=== PATIENT | male | born 1985 | race Caucasian/White ===

== ENCOUNTER 2017-11-14 09:24 | Emergency (ER) | payer MEDICAID ==
[~2017-11-14] VITALS: Ht 193 cm; Wt 90.1 kg
[2017-11-14 10:49] LABS: MD YES; MEAN CORPUSCULAR HEMOGLOBIN 29.4 pg (27.5-34.5); MEAN CORPUSCULAR HGB CONC 33.8 g/dL (33.2-36.2); MEAN CORPUSCULAR VOLUME 87.2 fL (81-97); MEAN PLATELET VOLUME 9.7 fL (7.4-10.4); PLATELET COUNT 205 x10^3/uL (130-400); RED BLOOD COUNT 4.86 x10^6/uL (4.38-5.82); RED CELL DISTRIBUTION WIDTH 13.5 % (9.4-14.8)
[2017-11-14 11:00] LABS: ALANINE AMINOTRANSFERASE 25 U/L (12-78); ALBUMIN 3.4 g/dL (3.4-5.0); ANION GAP 3 mmol/L (5-15); CALCIUM 8.4 mg/dL (8.5-10.1); CHLORIDE 107 mmol/L (98-107)
[2017-11-14 11:02] LABS: <RBC MORPHOLOGY> NORMAL; BAND#(MANUAL) 0.16 x10^3/uL; BANDS%(MANUAL) 2 % (0-7); EOS#(MANUAL) 0.41 x10^3/uL (0.0-0.4); EOS% (MANUAL) 5 % (1-7); LYMPH#(MANUAL) 2.75 x10^3/uL (1-3.4); LYMPHS% (MANUAL) 34 % (22-44); MONOS#(MANUAL) 1.05 x10^3/uL (0.3-2.7); MONOS% (MANUAL) 13 % (2-9); REACTIVE LYMPHS # (MANUAL) 0.49 x10^3/uL (0-0); REACTIVE LYMPHS % (MANUAL) 6 % (0-0); SEG#(MANUAL) 3.24 x10^3/uL (1.8-6.8); SEGS% (MANUAL) 40 % (42-75)
[2017-11-14 11:03] LABS: <PLATELET ESTIMATE> ADEQUATE; <PLT MORPHOLOGY> NORMAL PLT MORPH; ALKALINE PHOSPHATASE 81 U/L (45-117); BILIRUBIN,TOTAL 0.3 mg/dL (0.2-1.0); TOTAL PROTEIN 6.5 g/dL (6.4-8.2)
[2017-11-14 11:53] VITALS: BP 94/54
[2017-11-14] MEDS ORDERED: MAALOX/HYOSCYAMINE/LIDOCAINE 45 ML BTL ONE (11:57)
[2017-11-14] MEDS ORDERED: MAALOX/HYOSCYAMINE/LIDOCAINE 45 ML BTL PO ONE (12:00)
== END 2017-11-14 12:41 | disposition home or self-care (01) ==
LOC: ED 12:30
DX: K29.70 Gastritis, unspecified, without bleeding (principal); F17.200 Nicotine dependence, unspecified, uncomplicated; F31.9 Bipolar disorder, unspecified; K21.9 Gastro-esophageal reflux disease without esophagitis
CPT/HCPCS: 36415; 74022; 76700; 80053; 83690; 85025; 99285

== ENCOUNTER 2019-12-17 11:11 | Emergency (ER) | payer MEDICAID ==
[~2019-12-17] VITALS: Ht 190.5 cm; Wt 100.4 kg
[2019-12-17 11:20] VITALS: BP 108/72
--- NOTE | 2019-12-17 11:53 | NUR ---
PT REPORTS WORM ON SKIN, THEY "CAME OUT WHEN I PUT APPLE CIDER VINEGAR ON MY ARM", NO VISIBLE WORMS SEEN ON SKIN. PT STATES, "MY GIRLFRIEND WAS HERE AND YOU GUYS DIDNT TREAT HER RIGHT" PT REQUESTING PROVIDER TO PERFORM SKIN SCRAPPING, AWAITING ORDERS
== END 2019-12-17 12:14 | disposition home or self-care (01) ==
LOC: ED 12:08
DX: R21 Rash and other nonspecific skin eruption (principal); K21.9 Gastro-esophageal reflux disease without esophagitis
CPT/HCPCS: 99283

== ENCOUNTER 2021-01-02 03:20 | Inpatient (IN) | payer MEDICAID, OTHER ==
[~2021-01-02] VITALS: Ht 185.4 cm; Wt 102.0 kg
[2021-01-02] MEDS ORDERED: SODIUM CHLORIDE 0.9% 1,000ML IVBOLUS ONE ×2 (03:30→04:30)
--- NOTE | 2021-01-02 03:34 | NUR ---
Patient ALISIA from half-way after a poss seizure. 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 Upon EMS arrival, patient was posturing, diaphoretic, incontinent, and AAOx2. Unknown if hx of seizures. Patient diaphoretic. Responds to verbal stimuli. AAOx3 to person, place, and event. IV established, blood drawn, and urine collected via straight cath. LE at bedside.
--- NOTE | 2021-01-02 03:35 | NUR ---
EMS reports patient HR on arrival was in the 170s. BS 116. EMS admin 2mg Versed IM.
[2021-01-02 03:56] LABS: MICROSCOPIC INDICATED
[2021-01-02 03:57] LABS: MEAN CORPUSCULAR HGB CONC 34.7 g/dL (33.2-36.2); MEAN PLATELET VOLUME 11.1 fL (7.4-10.4); PLATELET COUNT 262 x10^3/uL (130-400); RED BLOOD COUNT 5.48 x10^6/uL (4.38-5.82); RED CELL DISTRIBUTION WIDTH 13.5 % (9.4-14.8)
--- NOTE | 2021-01-02 03:57 | NUR ---
PT STRAIGHT CATHED FOR UA, PT TOLERATED PROCEDURE WELL, PT HAD XRAY TAKEN AND IS NOW IN CT.
[2021-01-02 04:05] LABS: CHLORIDE 108 mmol/L (98-107)
[2021-01-02 04:09] LABS: AMPHETAMINE SCREEN, URINE Negative (Negative); BARBITURATE SCREEN, URINE Negative (Negative); BENZODIAZEPINE SCREEN, URINE Positive (Negative); CANNABINOID SCREEN, URINE Positive (Negative); COCAINE SCREEN, URINE Negative (Negative); METHADONE SCREEN, URINE Positive (Negative)
[2021-01-02 04:10] LABS: OPIATE SCREEN, URINE Negative (Negative)
[2021-01-02 04:10] LABS: ALANINE AMINOTRANSFERASE 40 U/L (12-78); ALBUMIN 4.2 g/dL (3.4-5.0); ALKALINE PHOSPHATASE 69 U/L (45-117); ANION GAP 13 mmol/L (5-15); BILIRUBIN,TOTAL 0.5 mg/dL (0.2-1.0); CALCIUM 9.6 mg/dL (8.5-10.1); CREATININE 1.18 mg/dL (0.7-1.3); SALICYLATE LEVEL 4.4 mg/dL (2.8-20.0); TOTAL PROTEIN 8.1 g/dL (6.4-8.2)
[2021-01-02] MEDS ORDERED: LIDOCAINE-MPF 1%, 2ML ONE (04:23)
[2021-01-02 04:29] LABS: BAND#(MANUAL) 0.92 x10^3/uL; BANDS%(MANUAL) 3 % (0-7); LYMPH#(MANUAL) 0.61 x10^3/uL (1-3.4); LYMPHS% (MANUAL) 2 % (22-44); MONOS#(MANUAL) 2.75 x10^3/uL (0.3-2.7); MONOS% (MANUAL) 9 % (2-9); SEG#(MANUAL) 26.23 x10^3/uL (1.8-6.8); SEGS% (MANUAL) 86 % (42-75)
[2021-01-02 04:30] LABS: <PLATELET ESTIMATE> ADEQUATE; <RBC MORPHOLOGY> NORMAL; LARGE PLATELETS 1+; PMNS WITH VACUOLES 1+
[2021-01-02] MEDS ORDERED: LIDOCAINE-MPF 1%, 2ML INFIL ONE (04:30)
--- NOTE | 2021-01-02 04:50 | NUR ---
pt had lp done, pt tolerated procedure well
[2021-01-02 05:15] LABS: GLUCOSE, CSF 98 mg/dL (40-80); TOTAL PROTEIN,CSF 44 mg/dL (15-45)
[2021-01-02] MEDS ORDERED: ENOXAPARIN 40 MG/0.4 ML SQ SCH (05:30)
[2021-01-02] MEDS ORDERED: BISACODYL 10 MG SUPP PR PRN (05:30)
[2021-01-02] MEDS ORDERED: LORazepam 2 MG/ML, 1ML IV PRN (05:30)
[2021-01-02] MEDS ORDERED: LEVETIRACETAM 1,000 MG in SODIUM CHLORIDE 0.9% 100 ML IV ONE (05:30)
--- NOTE | 2021-01-02 05:33 | NUR ---
pt laying flat on gurney, denies needs at this time.
--- NOTE | 2021-01-02 06:02 | NUR ---
This RN asked ERP about antibiotics. ERP stated that since there was no source and the patient was not tachy or had bands, the high white count could be due to seizure.
--- NOTE | 2021-01-02 06:06 | NUR ---
Pt to be admitted to Neuro Tele, room 488-2. Report called to JUSTIN Marte.
[2021-01-02 06:32] VITALS: BP 136/83
[2021-01-02 07:52] VITALS: BP 144/84
[2021-01-02] MEDS: SODIUM CHLORIDE 0.9% 1,000 ML IV SCH ×2 (09:53→16:58)
[2021-01-02 11:12] LABS: BASOPHILS % (AUTO) 0 % (0-1); EOSINOPHILS % (AUTO) 0 % (1-7); LYMPHOCYTES % (AUTO) 5 % (22-44); MEAN CORPUSCULAR HEMOGLOBIN 31.6 pg (27.5-34.5); MEAN PLATELET VOLUME 10.4 fL (7.4-10.4); MONOCYTES % (AUTO) 5 % (2-9); NEUTROPHILS % (AUTO) 90 % (42-75); PLATELET COUNT 193 x10^3/uL (130-400); RED CELL DISTRIBUTION WIDTH 13.3 % (9.4-14.8)
[2021-01-02 12:23] LABS: ALANINE AMINOTRANSFERASE 41 U/L (12-78); ALBUMIN 3.5 g/dL (3.4-5.0); ANION GAP 7 mmol/L (5-15); CALCIUM 8.4 mg/dL (8.5-10.1); CHLORIDE 112 mmol/L (98-107); CREATININE 0.62 mg/dL (0.7-1.3)
[2021-01-02 12:25] LABS: ALKALINE PHOSPHATASE 56 U/L (45-117); BILIRUBIN,TOTAL 0.4 mg/dL (0.2-1.0); TOTAL PROTEIN 6.7 g/dL (6.4-8.2)
[2021-01-02 15:24] VITALS: BP 151/78
[2021-01-02] MEDS: LEVETIRACETAM 500 MG in SODIUM CHLORIDE 0.9% 100 ML IV SCH (16:29)
[2021-01-02 19:58] VITALS: BP 147/82
[2021-01-02 23:34] LABS: MEAN CORPUSCULAR HEMOGLOBIN 30.9 pg (27.5-34.5); MEAN CORPUSCULAR HGB CONC 34.6 g/dL (33.2-36.2); MEAN PLATELET VOLUME 10.9 fL (7.4-10.4); PLATELET COUNT 196 x10^3/uL (130-400); RED BLOOD COUNT 4.86 x10^6/uL (4.38-5.82); RED CELL DISTRIBUTION WIDTH 13.2 % (9.4-14.8)
[2021-01-02 23:40] LABS: HCT (SEDRATE) 43.5 % (39.2-51.8)
[2021-01-02 23:43] LABS: ALBUMIN 3.4 g/dL (3.4-5.0); ANION GAP 7 mmol/L (5-15); CALCIUM 8.9 mg/dL (8.5-10.1); CHLORIDE 112 mmol/L (98-107)
[2021-01-03] VITALS (12 sets, daily range): BP systolic 126–149; BP diastolic 68–86
[2021-01-03 00:07] LABS: <RBC MORPHOLOGY> NORMAL; BAND#(MANUAL) 0.47 x10^3/uL; BANDS%(MANUAL) 2 % (0-7); LYMPHS% (MANUAL) 3 % (22-44); MONOS#(MANUAL) 0.93 x10^3/uL (0.3-2.7); MONOS% (MANUAL) 4 % (2-9); SEGS% (MANUAL) 91 % (42-75)
[2021-01-03 00:08] LABS: <PLATELET ESTIMATE> ADEQUATE; LARGE PLATELETS 1+
[2021-01-03 00:22] LABS: ALANINE AMINOTRANSFERASE 52 U/L (12-78); ALKALINE PHOSPHATASE 54 U/L (45-117); BILIRUBIN,TOTAL 0.5 mg/dL (0.2-1.0); CREATINE KINASE, TOTAL 7820 U/L (39-308); CREATININE 0.86 mg/dL (0.7-1.3); TOTAL PROTEIN 6.7 g/dL (6.4-8.2)
[2021-01-03] MEDS ORDERED: LORazepam 2 MG/ML, 1ML IVPush ONE (01:30)
[2021-01-03] MEDS ORDERED: VANCOMYCIN PER PHARMACY MC PRN (01:30)
[2021-01-03] MEDS: AMPICILLIN/SULBACTAM 3 GM in SODIUM CHLORIDE 0.9% 100 ML IV SCH ×3 (02:00→19:27)
[2021-01-03] MEDS ORDERED: VANCOMYCIN 2,300 MG in SODIUM CHLORIDE 0.9% 500 ML IV ONE (02:00)
[2021-01-03] MEDS ORDERED: PHARMACOKINETIC MONITORING MC PRN (02:00)
[2021-01-03] MEDS: SODIUM CHLORIDE 0.9% 1,000 ML IV SCH ×3 (04:00→20:49)
[2021-01-03] MEDS: LEVETIRACETAM 500 MG in SODIUM CHLORIDE 0.9% 100 ML IV SCH ×2 (05:00→17:24)
[2021-01-03] MEDS: ACETAMINOPHEN 650 MG SUPP PR PRN ×2 (09:47→13:55)
[2021-01-03] MEDS: VANCOMYCIN 1,800 MG in SODIUM CHLORIDE 0.9% 250 ML IV SCH ×2 (12:22→20:50)
[2021-01-03] MEDS ORDERED: IBUPROFEN 100 MG/5 ML UDC NG ONE (18:00)
[2021-01-03] MEDS ORDERED: IBUPROFEN 200 MG TABLET NG ONE (18:00)
[2021-01-03] MEDS ORDERED: SODIUM CHLORIDE 0.9% 1,000ML IVBOLUS ONE (20:00)
[2021-01-04] VITALS (7 sets, daily range): BP systolic 125–159; BP diastolic 78–84
[2021-01-04] MEDS: AMPICILLIN/SULBACTAM 3 GM in SODIUM CHLORIDE 0.9% 100 ML IV SCH ×3 (03:08→19:50)
[2021-01-04] MEDS: LEVETIRACETAM 500 MG in SODIUM CHLORIDE 0.9% 100 ML IV SCH ×2 (04:18→16:44)
[2021-01-04] MEDS: VANCOMYCIN 1,800 MG in SODIUM CHLORIDE 0.9% 250 ML IV SCH ×3 (04:35→20:51)
[2021-01-04 05:24] LABS: BASOPHILS % (AUTO) 0 % (0-1); EOSINOPHILS % (AUTO) 0 % (1-7); LYMPHOCYTES % (AUTO) 6 % (22-44); MEAN CORPUSCULAR HEMOGLOBIN 30.6 pg (27.5-34.5); MEAN CORPUSCULAR HGB CONC 34.1 g/dL (33.2-36.2); MEAN PLATELET VOLUME 11.2 fL (7.4-10.4); MONOCYTES % (AUTO) 9 % (2-9); NEUTROPHILS % (AUTO) 84 % (42-75); PLATELET COUNT 162 x10^3/uL (130-400); RED BLOOD COUNT 4.55 x10^6/uL (4.38-5.82); RED CELL DISTRIBUTION WIDTH 13.3 % (9.4-14.8)
[2021-01-04 05:42] LABS: CHLORIDE 113 mmol/L (98-107)
[2021-01-04 06:17] LABS: ALANINE AMINOTRANSFERASE 55 U/L (12-78); ALBUMIN 2.8 g/dL (3.4-5.0); ALKALINE PHOSPHATASE 44 U/L (45-117); ANION GAP 7 mmol/L (5-15); BILIRUBIN,TOTAL 0.6 mg/dL (0.2-1.0); CALCIUM 8.4 mg/dL (8.5-10.1); CREATINE KINASE, TOTAL 4037 U/L (39-308); CREATININE 0.46 mg/dL (0.7-1.3)
[2021-01-04] MEDS: ACETAMINOPHEN 650 MG SUPP PR PRN (16:44)
[2021-01-04] MEDS: SODIUM CHLORIDE 0.9% 1,000 ML IV SCH (19:00)
[2021-01-05 01:03] VITALS: BP 158/90
[2021-01-05] MEDS: AMPICILLIN/SULBACTAM 3 GM in SODIUM CHLORIDE 0.9% 100 ML IV SCH ×3 (02:21→20:06)
[2021-01-05] MEDS: VANCOMYCIN 1,800 MG in SODIUM CHLORIDE 0.9% 250 ML IV SCH ×3 (03:49→21:24)
[2021-01-05] MEDS: SODIUM CHLORIDE 0.9% 1,000 ML IV SCH ×2 (05:00→12:49)
[2021-01-05] MEDS: LEVETIRACETAM 500 MG in SODIUM CHLORIDE 0.9% 100 ML IV SCH ×2 (05:07→17:28)
[2021-01-05 06:59] VITALS: BP 156/55
[2021-01-05] MEDS: BROMOCRIPTINE 2.5 MG TABLET PO SCH ×3 (11:45→21:24)
[2021-01-05 12:47] VITALS: BP 157/92
[2021-01-05] MEDS: ACETAMINOPHEN 650 MG SUPP PR PRN (12:48)
[2021-01-05 15:16] VITALS: BP 147/74
[2021-01-05] MEDS ORDERED: GADOTERATE 10 MMOL/20ML SYR ONE (18:23)
[2021-01-05 21:09] VITALS: BP 123/78
[2021-01-06 00:31] VITALS: BP 125/78
[2021-01-06] MEDS: ACETAMINOPHEN 650 MG SUPP PR PRN (00:34)
[2021-01-06] MEDS: AMPICILLIN/SULBACTAM 3 GM in SODIUM CHLORIDE 0.9% 100 ML IV SCH ×3 (03:13→18:25)
[2021-01-06] MEDS: VANCOMYCIN 1,800 MG in SODIUM CHLORIDE 0.9% 250 ML IV SCH (04:31)
[2021-01-06] MEDS: SODIUM CHLORIDE 0.9% 1,000 ML IV SCH (04:31)
[2021-01-06] MEDS: LEVETIRACETAM 500 MG in SODIUM CHLORIDE 0.9% 100 ML IV SCH ×2 (05:28→06:17)
[2021-01-06 05:51] LABS: BASOPHILS % (AUTO) 0 % (0-1); EOSINOPHILS % (AUTO) 1 % (1-7); LYMPHOCYTES % (AUTO) 17 % (22-44); MEAN CORPUSCULAR HEMOGLOBIN 30.5 pg (27.5-34.5); MEAN PLATELET VOLUME 11.2 fL (7.4-10.4); MONOCYTES % (AUTO) 9 % (2-9); NEUTROPHILS % (AUTO) 74 % (42-75); PLATELET COUNT 164 x10^3/uL (130-400); RED BLOOD COUNT 4.31 x10^6/uL (4.38-5.82); RED CELL DISTRIBUTION WIDTH 13.3 % (9.4-14.8)
[2021-01-06 06:00] LABS: ALBUMIN 2.2 g/dL (3.4-5.0); ANION GAP 3 mmol/L (5-15); CALCIUM 8.2 mg/dL (8.5-10.1); CHLORIDE 115 mmol/L (98-107)
[2021-01-06 06:15] LABS: ALANINE AMINOTRANSFERASE 104 U/L (12-78); ALKALINE PHOSPHATASE 51 U/L (45-117); BILIRUBIN,TOTAL 0.5 mg/dL (0.2-1.0); CREATINE KINASE, TOTAL 2336 U/L (39-308); CREATININE 0.41 mg/dL (0.7-1.3); TOTAL PROTEIN 5.3 g/dL (6.4-8.2)
[2021-01-06 09:10] VITALS: BP 130/76
[2021-01-06] MEDS: BROMOCRIPTINE 2.5 MG TABLET PO SCH (09:25)
[2021-01-06] MEDS: POTASSIUM CHLORIDE 20 MEQ PACKET PO SCH ×2 (10:47→20:16)
[2021-01-06] MEDS: VANCOMYCIN 1,900 MG in SODIUM CHLORIDE 0.9% 250 ML IV SCH ×2 (12:46→20:16)
[2021-01-06 14:31] VITALS: BP 143/85
[2021-01-06] MEDS: LEVETIRACETAM 250 MG in SODIUM CHLORIDE 0.9% 100 ML IV SCH (17:32)
[2021-01-06 20:30] VITALS: BP 139/90
[2021-01-07 00:55] VITALS: BP 138/82
[2021-01-07] MEDS: AMPICILLIN/SULBACTAM 3 GM in SODIUM CHLORIDE 0.9% 100 ML IV SCH ×3 (03:20→20:19)
[2021-01-07] MEDS: VANCOMYCIN 1,900 MG in SODIUM CHLORIDE 0.9% 250 ML IV SCH ×2 (04:36→12:48)
[2021-01-07] MEDS: POLYETHYLENE GLYCOL 17 GM PACKET PO PRN (06:13)
[2021-01-07] MEDS: LEVETIRACETAM 250 MG in SODIUM CHLORIDE 0.9% 100 ML IV SCH ×2 (06:13→17:14)
[2021-01-07 06:42] LABS: BASOPHILS % (AUTO) 1 % (0-1); EOSINOPHILS % (AUTO) 1 % (1-7); LYMPHOCYTES % (AUTO) 11 % (22-44); MEAN CORPUSCULAR HEMOGLOBIN 30.7 pg (27.5-34.5); MEAN CORPUSCULAR HGB CONC 34.5 g/dL (33.2-36.2); MEAN PLATELET VOLUME 10.8 fL (7.4-10.4); MONOCYTES % (AUTO) 8 % (2-9); NEUTROPHILS % (AUTO) 79 % (42-75); PLATELET COUNT 161 x10^3/uL (130-400); RED BLOOD COUNT 4.41 x10^6/uL (4.38-5.82); RED CELL DISTRIBUTION WIDTH 13.1 % (9.4-14.8)
[2021-01-07 06:51] LABS: CHLORIDE 107 mmol/L (98-107)
[2021-01-07 06:58] LABS: ALANINE AMINOTRANSFERASE 113 U/L (12-78); ALBUMIN 2.1 g/dL (3.4-5.0); ALKALINE PHOSPHATASE 47 U/L (45-117); ANION GAP 4 mmol/L (5-15); BILIRUBIN,TOTAL 0.6 mg/dL (0.2-1.0); CALCIUM 8.3 mg/dL (8.5-10.1); CREATININE 0.38 mg/dL (0.7-1.3); TOTAL PROTEIN 5.4 g/dL (6.4-8.2)
[2021-01-07 08:53] VITALS: BP 130/82
[2021-01-07] MEDS: POTASSIUM CHLORIDE 20 MEQ PACKET PO SCH ×3 (09:34→21:44)
[2021-01-07 12:27] VITALS: BP 155/91
[2021-01-07 20:11] VITALS: BP 116/78
[2021-01-07] MEDS: VANCOMYCIN 2,000 MG in SODIUM CHLORIDE 0.9% 500 ML IV SCH (21:44)
[2021-01-08 00:52] VITALS: BP 135/87
[2021-01-08] MEDS: AMPICILLIN/SULBACTAM 3 GM in SODIUM CHLORIDE 0.9% 100 ML IV SCH ×3 (04:23→21:13)
[2021-01-08] MEDS: LEVETIRACETAM 250 MG in SODIUM CHLORIDE 0.9% 100 ML IV SCH (05:20)
[2021-01-08] MEDS: VANCOMYCIN 2,000 MG in SODIUM CHLORIDE 0.9% 500 ML IV SCH (05:38)
[2021-01-08 06:12] LABS: BASOPHILS % (AUTO) 1 % (0-1); EOSINOPHILS % (AUTO) 1 % (1-7); LYMPHOCYTES % (AUTO) 10 % (22-44); MEAN PLATELET VOLUME 10.2 fL (7.4-10.4); MONOCYTES % (AUTO) 7 % (2-9); NEUTROPHILS % (AUTO) 81 % (42-75); PLATELET COUNT 170 x10^3/uL (130-400); RED BLOOD COUNT 4.52 x10^6/uL (4.38-5.82); RED CELL DISTRIBUTION WIDTH 13.3 % (9.4-14.8)
[2021-01-08 06:20] LABS: ANION GAP 4 mmol/L (5-15); CALCIUM 8.2 mg/dL (8.5-10.1); CHLORIDE 106 mmol/L (98-107)
[2021-01-08] MEDS: POLYETHYLENE GLYCOL 17 GM PACKET PO PRN (07:52)
[2021-01-08 12:20] VITALS: BP 128/82
[2021-01-08] MEDS ORDERED: MAGNESIUM SULFATE PMX 2GM/50ML 50 ML IV ONE (13:30)
[2021-01-08 20:18] VITALS: BP 120/69
[2021-01-08] MEDS: LEVETIRACETAM 500 MG TABLET PO SCH (21:34)
[2021-01-09 00:31] VITALS: BP 116/74
[2021-01-09 00:41] VITALS: BP 123/76
[2021-01-09] MEDS: AMPICILLIN/SULBACTAM 3 GM in SODIUM CHLORIDE 0.9% 100 ML IV SCH (04:00)
[2021-01-09 08:03] VITALS: BP 135/87
[2021-01-09] MEDS: LEVETIRACETAM 500 MG TABLET PO SCH (09:18)
== END 2021-01-09 11:40 | disposition home or self-care (01) | DRG 70 ==
LOC: ED 04:06 → EDIP 06:04 → 4EST 06:21 → 4WST 01-03 20:04
PROVIDERS: ADMIT Internal Medicine; ATTEND Hospitalist
DX: G93.41 Metabolic encephalopathy (principal); J18.9 Pneumonia, unspecified organism; J96.01 Acute respiratory failure with hypoxia; E87.0 Hyperosmolality and hypernatremia; M62.82 Rhabdomyolysis; F13.239 Sedative, hypnotic or anxiolytic dependence with withdrawal, unspecified; G21.0 Malignant neuroleptic syndrome; E87.6 Hypokalemia; F10.10 Alcohol abuse, uncomplicated; F11.90 Opioid use, unspecified, uncomplicated; R32 Unspecified urinary incontinence; R56.9 Unspecified convulsions; F17.210 Nicotine dependence, cigarettes, uncomplicated; F12.20 Cannabis dependence, uncomplicated; F19.10 Other psychoactive substance abuse, uncomplicated; F99 Mental disorder, not otherwise specified; Z20.822 Contact with and (suspected) exposure to COVID-19
CPT/HCPCS: 36415; 36600; 70450; 70553; 71045; 74018; 80048; 80053; 80202; 80299; 80307; 80320; 80329; 81001; 82140; 82550; 82803; 82945; 82962; 83036; 83605; 83735; 84145; 84157; 85025; 85651; 87040; 87070; 87205; 87252; 89051; 93005; 93306; 93356; 95819; 96374; G0378; J0295; J1953; J3370; U0005; A9575; G0480; J2060; J7030; J7040; J7050; U0003